=== PATIENT | male | born 1970 | race Caucasian/White ===

== ENCOUNTER → 2017-02-04 | Outpatient (CLI) | payer MEDICARE, OTHER ==
--- NOTE | 2017-02-04 12:09 | MR ---
EXAMINATION TYPE: MR lumbar spine wo con DATE OF EXAM: 02/04/2017 COMPARISON: NONE HISTORY: low back pain TECHNIQUE: Multiplanar, multisequence images of the lumbar spine were acquired. L1-L2: Normal disc appearance without desiccation. No herniation, protrusion or disc bulging. No ca nal stenosis is present. Foramina are patent bilaterally. L2-L3: There is a broad-based disc bulge with disc desiccation present without spinal canal stenosis or neural foraminal narrowing. L3-L4: There is a similar right paracentral subligamentous disc extrusion with caudal extension appro ximately 6 mm. Broad-based component of the disc desiccation abuts the ventral thecal sac resulting i n mild spinal canal stenosis in combination with ligamentum flavum buckling and facet arthropathy. Mi ld bilateral neural foraminal narrowing are seen. L4-L5: Left paracentral protrusion is present superimposed on a broad-based disc bulge. Additionally ligamentum flavum buckling and facet arthropathy are seen at this level resulting in moderate to allyn re bilateral neural foraminal narrowing and mild spinal canal stenosis. Degree of herniation is simil ar to the prior. L5-S1: Broad-based disc bulge is present with diffuse disc desiccation and Modic type II changes of t he endplates, degenerative in nature. There is mild bilateral neural foraminal narrowing and no evide nce of spinal canal stenosis at this level. Lumbar segments are intact. No paraspinal masses are identified. Conus medullaris has a normal appe arance. Diffuse heterogenous appearance of the bone marrow without focal abnormality is seen. IMPRESSION: 1. Stable left paracentral disc herniation at L4-L5 in comparison to the prior exam creating moderate to severe bilateral neural foraminal narrowing in mild spinal canal stenosis. 2. Similar right paracentral subligamentous disc extrusion with caudal extension of 6 mm at L3-L4 wit h resultant mild bilateral neural foraminal narrowing and spinal canal stenosis. 3. Diffuse heterogenous bone marrow signal the relate to marrow reconversion and correlation with CBC is recommended. 4. Previously seen subligamentous disc herniation at L2-L3 has improved and has the appearance of a b road-based disc bulge on today's examination.
== END ==
LOC: RADMRIMAIN 11:17
PROVIDERS: ATTEND Neurological Surgery
DX: M51.26 Other intervertebral disc displacement, lumbar region (principal); M54.5 Low back pain; M48.06 Spinal stenosis, lumbar region
CPT/HCPCS: 72148

== ENCOUNTER → 2018-09-21 | Outpatient (CLI) | payer MEDICARE, OTHER | END | disposition home or self-care (01) | LOC: LABWHC1 12:11 | PROVIDERS: ATTEND Internal Medicine | DX: E87.6 Hypokalemia (principal) | CPT/HCPCS: 36415; 84132 ==

== ENCOUNTER 2018-09-22 04:59 | Emergency (ER) | payer MEDICARE, OTHER ==
[2018-09-22 05:14] VITALS: BP 160/99; PULSE 96; RESP 20; TEMP 98.1
[2018-09-22 06:10] LABS: Basophils # (A) 0.1 k/uL (0-0.2); Basophils % (A) 1 %; Eosinophils # (A) 0.4 k/uL (0-0.7); Eosinophils % (A) 3 %; HCT 40.3 % (39.0-53.0); HGB 13.5 gm/dL (13.0-17.5); Lymphocytes # (A) 2.7 k/uL (1.0-4.8); Lymphocytes % (A) 22 %; MCH 31.3 pg (25.0-35.0); MCHC 33.4 g/dL (31.0-37.0); MCV 93.6 fL (80.0-100.0); Mean Platelet Volume 6.7; Monocytes # (A) 0.7 k/uL (0-1.0); Monocytes % (A) 6 %; Neutrophils # (A) 8.2 k/uL (1.3-7.7); Neutrophils % (A) 67 %; Platelet Count 285 k/uL (150-450); RBC 4.31 m/uL (4.30-5.90); RDW 12.3 % (11.5-15.5); WBC 12.2 k/uL (3.8-10.6)
[2018-09-22 06:32] LABS: Calcium 10.6 mg/dL (8.4-10.2)
--- NOTE | 2018-09-22 06:41 | ED ---
Recheck HPI - General Chief Complaint: Recheck/Abnormal Lab/Rx Stated Complaint: potassium level issue Time Seen by Provider: 09/22/18 05:11 Source: patient Mode of arrival: ambulatory Limitations: no limitations - History of Present Illness Initial Comments: This patient is a 48-year-old man who presents to be evaluated for elevated potassium. The patient states that he had a routine follow-up yesterday. He had labs drawn as part of this and then was called back in as result of his potassium being high. The patient went to [facility] and states that when he was there potassium was checked and it was 7. He had some treatment there and then the potassium was rechecked and had reportedly gone down to 6.2. He had a third test shortly after that and the value came back at 6.5. The patient was then told that he needed to be transferred to a facility that had a higher level of care so he signed himself out and decided to go directly to this facility. Patient denied having any symptoms related to the abnormal labs. He denied weakness or fatigue. No palpitations lightheadedness. No myalgias MD Complaint: abnormal lab Onset/Timin -: days(s) Symptoms Since Prior Visit: no new symptoms Associated Symptoms: none - Related Data Home Medications Medication Instructions Recorded Confirmed Albuterol Inhaler [Ventolin Hfa 1 - 2 puff INHALATION RT-Q6H PRN 09/22/1809/06 Inhaler] Albuterol Nebulized [Ventolin 2.5 mg INHALATION RT-QID PRN 09/22/18 09/22/18 Nebulized] Atorvastatin Calcium [Lipitor] 10 mg PO HS 09/22/18 09/22/18 Cyclobenzaprine [Flexeril] 10 mg PO TID 09/22/18 09/22/18 Fluticasone/Salmeterol [Advair 1 puff INHALATION RT-BID 09/22/18 09/22/18 100-50 Diskus] HYDROcodone/APAP 10-325MG [Sayner 1 tab PO TID 09/22/18 09/22/18 10-325] Lisinopril 20 mg PO BID 09/22/18 09/22/18 Pregabalin [Lyrica] 50 mg PO BID 09/22/18 09/22/18 Allergies Allergy/AdvReac Type Severity Reaction Status Date / Time No Known Allergies Allergy Verified 09/22/18 07:37 Review of Systems ROS Statement: Those systems with pertinent positive or pertinent negative responses have been documented in the HPI. ROS Other: All systems not noted in ROS Statement are negative. Constitutional: Denies: fever, chills, weakness Eyes: Denies: vision change Respiratory: Denies: cough, dyspnea Cardiovascular: Denies: chest pain, palpitations Gastrointestinal: Denies: abdominal pain, vomiting, diarrhea Genitourinary: Denies: dysuria Musculoskeletal: Denies: back pain Skin: Denies: rash Neurological: Denies: headache, weakness, numbness, paresthesias Past Medical History Past Medical History: Hyperlipidemia, Hypertension Additional Past Medical History / Comment(s): Chronic back pain History of Any Multi-Drug Resistant Organisms: None Reported Past Surgical History: Orthopedic Surgery Past Psychological History: No Psychological Hx Reported Smoking Status: Current every day smoker Past Alcohol Use History: None Reported Past Drug Use History: Marijuana General Exam Limitations: no limitations General appearance: alert Head exam: Present: atraumatic, normocephalic Eye exam: Present: normal appearance Neck exam: Present: normal inspection Respiratory exam: Present: normal lung sounds bilaterally. Absent: respiratory distress, wheezes, rales, rhonchi, stridor Cardiovascular Exam: Present: regular rate, normal rhythm, normal heart sounds. Absent: systolic murmur, diastolic murmur, rubs, gallop GI/Abdominal exam: Present: soft. Absent: tenderness, guarding, rebound Extremities exam: Present: normal inspection, normal capillary refill. Absent: pedal edema, calf tenderness Back exam: Present: normal inspection. Absent: CVA tenderness (R), CVA tenderness (L) Neurological exam: Present: alert. Absent: motor sensory deficit Skin exam: Present: warm, dry, intact, normal color. Absent: rash Course Vital Signs 09/22/18 05:04 Temperature 98.1 F Pulse Rate 96 Respiratory 20 Rate Blood Pressure 160/99 O2 Sat by Pulse 95 Oximetry Medical Decision Making - Medical Decision Making Patient is 48-year-old man presents here with hyperkalemia. I discussed the findings with the patient and did give dose of Kayexalate. The patient then stated that he was leaving and would not stay. We discussed that sudden cardiac , disability, and worsening of his condition can all occurred. The patient does express understanding. He states that he will deftly follow up today with the follow-up physicians. We discussed return parameters. - Lab Data Result diagrams: 09/22/18 05:37 09/22/18 05:37 Lab Results 09/22/18 09/22/18 Range/Units 05:37 05:37 WBC 12.2 H (3.8-10.6) k/uL RBC 4.31 (4.30-5.90) m/uL Hgb 13.5 (13.0-17.5) gm/dL Hct 40.3 (39.0-53.0) % MCV 93.6 (80.0-100.0) fL MCH 31.3 (25.0-35.0) pg MCHC 33.4 (31.0-37.0) g/dL RDW 12.3 (11.5-15.5) % Plt Count 285 (150-450) k/uL Neutrophils % 67 % Lymphocytes % 22 % Monocytes % 6 % Eosinophils % 3 % Basophils % 1 % Neutrophils # 8.2 H (1.3-7.7) k/uL Lymphocytes # 2.7 (1.0-4.8) k/uL Monocytes # 0.7 (0-1.0) k/uL Eosinophils # 0.4 (0-0.7) k/uL Basophils # 0.1 (0-0.2) k/uL Sodium 133 L (137-145) mmol/L Potassium 6.5 H* (3.5-5.1) mmol/L Chloride 100 (98-107) mmol/L Carbon Dioxide 23 (22-30) mmol/L Anion Gap 10 mmol/L BUN 27 H (9-20) mg/dL Creatinine 1.25 (0.66-1.25) mg/dL Est GFR (CKD-EPI)AfAm 78 (>60 ml/min/1.73 sqM) Est GFR (CKD-EPI)NonAf 68 (>60 ml/min/1.73 sqM) Glucose 106 H (74-99) mg/dL Calcium 10.6 H (8.4-10.2) mg/dL - EKG Data -: EKG Interpreted by [facility] EKG shows normal: sinus rhythm (Rate 87 bpm), axis (Normal), intervals (MN interval is 154 ms, QTC 406 ms, both normal. QRS duration 124 ms, borderline.), QRS complexes (Borderline for right bundle-branch block) Rate: normal Disposition Clinical Impression: Hyperkalemia Disposition: Left Against Medical Advice Condition: Serious Is patient prescribed a controlled substance at d/c from ED?: No Referrals: Rosalinda Baeza MD [Primary Care Provider] - 1-2 days Rita Myeer MD [STAFF PHYSICIAN] - 1-2 days
[2018-09-22 06:42] LABS: Potassium 6.5 mmol/L (3.5-5.1)
[2018-09-22] MEDS ORDERED: SODIUM POLYSTYRENE SULFONATE 15 GM/60 ML BOTTLE PO STA (08:02)
== END 2018-09-22 08:25 | disposition left against medical advice (07) ==
LOC: EC 04:59
DX: E87.6 Hypokalemia (principal); I10 Essential (primary) hypertension; E78.5 Hyperlipidemia, unspecified; M54.9 Dorsalgia, unspecified; G89.29 Other chronic pain; F17.200 Nicotine dependence, unspecified, uncomplicated; Z98.890 Other specified postprocedural states; Z79.51 Long term (current) use of inhaled steroids; Z79.891 Long term (current) use of opiate analgesic; Z79.899 Other long term (current) drug therapy
CPT/HCPCS: 36415; 80048; 85025; 93005; 99285

== ENCOUNTER → 2021-10-11 | Outpatient (CLI) | payer MEDICARE, OTHER ==
[2021-10-11 13:24] LABS: INR 0.9 (<1.2); Partial Thromboplastin Time 25.9 sec (22.0-30.0); Prothrombin Time 10.4 sec (9.0-12.0)
[2021-10-11 19:14] LABS: HCT 42.3 % (39.6-50.0); HGB 13.9 g/dL (13.0-17.0); MCH 31.4 pg (27.0-32.0); MCHC 32.9 g/dL (32.0-37.0); MCV 95.5 fL (80.0-97.0); Mean Platelet Volume 9.9 fL (9.5-12.2); NRBC Per 100 WBC 0 /100 WBCS (0.0-0.0); Platelet Count 268 X 10*3/uL (140-440); RBC 4.43 X 10*6/uL (4.40-5.60); RDW 12.9 % (11.5-14.5); WBC 9.73 X 10*3/uL (4.50-10.00)
[2021-10-11 19:22] LABS: African American GFR (CKD) 113.4 (60.0-200.0); Albumin 4.6 g/dL (3.8-4.9); Albumin/Globulin Ratio 1.44 (1.60-3.17); Anion Gap 13.2 mmol/L (10.00-18.00); BUN/Creat Ratio 11.67 Ratio (12.00-20.00); Blood Urea Nitrogen 10.5 mg/dL (9.0-27.0); Calcium 9.8 mg/dL (8.7-10.3); Carbon Dioxide 24.8 mmol/L (20.0-27.5); Globulin 3.2 g/dL (1.6-3.3); Non-African American GFR(CKD) 97.9 (60.0-200.0); Potassium 4.3 mmol/L (3.5-5.5); Total Bilirubin 0.9 mg/dL (0.30-1.20); Total Protein 7.8 g/dL (6.2-8.2)
[2021-10-11 20:39] LABS: Appearance,Urine Clear (Clear); Bacteria,Urine None Seen /HPF (None Seen); Bilirubin,Urine Negative (Negative); Blood,Urine Negative (Negative); Color,Urine Dark Yellow (Yellow); Ketones,Urine Trace mg/dL (Negative); Nitrite,Urine Negative (Negative); PH, Urine 6.5 (5.0-8.0); Specific Gravity,Urine 1.029 (1.001-1.030)
== END | disposition home or self-care (01) ==
LOC: LABPAT 12:24
PROVIDERS: ATTEND Orthopaedic Surgery
DX: Z01.818 Encounter for other preprocedural examination (principal); M16.11 Unilateral primary osteoarthritis, right hip
CPT/HCPCS: 80053; 81001; 85027; 85610; 85730; 86850; 86900; 86901; 87070

== ENCOUNTER 2021-10-15 05:34 | Day surgery (SDC) | payer MEDICARE, OTHER ==
[2021-10-11 15:45] VITALS: BMI 31.0
[~2021-10-15 05:34] MED LIST: ACETAMINOPHEN TAB 500 MG TAB PO PRN; GABAPENTIN 300 MG CAP PO PRN; MELOXICAM 7.5 MG TAB PO PRN; TRANEXAMIC ACID IN NACL,ISO-OS 1,000 MG in SALINE 1 100ML.BAG IVPB PRN
[2021-10-15] MEDS ORDERED: ONDANSETRON 4 MG/2 ML VIAL IVP ONE (05:48)
[2021-10-15] MEDS ORDERED: LACTATED RINGERS 1,000 ML IV SCH (05:48)
[2021-10-15] MEDS ORDERED: DEXAMETHASONE SOD PHOSPHATE 4 MG/ML 1 ML VIAL IV ONE (05:48)
[2021-10-15] MEDS ORDERED: SCOPOLAMINE 1 MG/72 HR PATCH TRANSDERM ONE (05:48)
[2021-10-15] MEDS ORDERED: MIDAZOLAM 2 MG/2 ML VIAL IV PRN (05:48)
[2021-10-15] MEDS ORDERED: LIDOCAINE 1% (10MG/ML) FOR IV START INTRADERMA ONE (06:20)
[2021-10-15] MEDS ORDERED: PROPOFOL 10 MG/ML 20 ML VIAL IV ONE (06:55)
[2021-10-15] MEDS ORDERED: fentaNYL (PF) 50 MCG/ML 2 ML AMP ONE (06:55)
[2021-10-15] MEDS ORDERED: SUCCINYLCHOLINE CHLORIDE 100 MG/5 ML SYR IV ONE (06:55)
[2021-10-15] MEDS ORDERED: NEOSTIGMINE 1 MG/ML 10 ML VIAL ONE (06:55)
[2021-10-15] MEDS ORDERED: MIDAZOLAM 2 MG/2 ML VIAL ONE (06:55)
[2021-10-15] MEDS ORDERED: ROCURONIUM 10 MG/ML (5 ML VIAL) IV ONE (06:55)
[2021-10-15] MEDS ORDERED: HYDROmorphone (PF) 1 MG/ML ONE (06:55)
[2021-10-15] MEDS ORDERED: LIDOCAINE 2% INJ 20 MG/ML (2 ML VIAL) ONE (06:55)
[2021-10-15] MEDS ORDERED: GLYCOPYRROLATE 0.2 MG/ML 2 ML VIAL ONE (06:55)
[2021-10-15] MEDS ORDERED: KETAMINE 10 MG/ML 20 ML VIAL ONE (06:55)
[2021-10-15] MEDS ORDERED: TRANEXAMIC ACID IN NACL,ISO-OS 1,000 MG/100 ML BAG ONE (06:55)
[2021-10-15] MEDS ORDERED: ceFAZolin 1,000 MG in SODIUM CHLORIDE 0.9% 1,000 ML IRRIGATION ONE (06:59)
[2021-10-15] MEDS ORDERED: ROPIVACAINE 5 MG/ML 30 ML VIAL MISCELLANE ONE ×2 (07:25→08:02)
[2021-10-15] MEDS ORDERED: LACTATED RINGERS 1,000 ML IV ONE (08:08)
--- NOTE | 2021-10-15 08:10 | P.OP ---
Date of Procedure: 10/15/21 Preoperative Diagnosis: Severe Osteoarthritis right hip Postoperative Diagnosis: Severe osteoarthritis right hip Procedure(s) Performed: Right total hip arthroplasty with a direct anterior approach Implants: [employer] Polarstem standard size 4 [employer] R3, 3 hole hemispherical acetabular shell, 56 mm [employer] Reflection 6.5 mm cancellus screw, 20 mm 2 [employer] R3, XLPE 20 acetabular liner [employer]hew Oxinium femoral head 36 m, +0 All components were press-fit. The articulation is Oxinium on polyethylene. Anesthesia: GETA Surgeon: Ramiro Lozano High Heel Builder #1: Elis Mcgill Estimated Blood Loss (ml): 250 Pathology: other (Femoral head) Condition: stable Disposition: PACU Indications for Procedure: After failure of conservative treatment we discussed the surgical and nonsurgical treatment options at length. Patient wishes to proceed with a total hip arthroplasty with a direct anterior approach. Complications specific to this procedure were discussed at length, including but not limited to infection, leg length discrepancy, dislocation, nerve injury, and fracture. Covid-19 was also discussed at length with the patient, and they are aware of the current policies and procedures. The patient was given the option of delaying surgery, but they elect to proceed knowing these risks. Patient is aware of all these complications and informed consent was obtained Operative Findings: The operative findings are consistent with severe osteoarthritis the right hip Description of Procedure: Patient was seen and evaluated in the preoperative area and the consent was reviewed. The operative site was marked with a skin marker. The patient was then brought to the operating room and given preoperative antibiotics int ravenously. 1 g of Tranexamic acid was also given intravenously. A general anesthetic was administered by the anesthesia department. The patient was then placed on the Adams table with the bony prominences well-padded. The hip area was then prepped with a ChloraPrep solution and draped in the usual sterile fashion. A universal timeout was then performed, which confirmed the patient's name, bernal rgical site, ALLERGIES, and procedure being performed on the consent. Next the incision site was located at 1 cm distal and 2 cm lateral to the anterior superior iliac spine. The skin and subcutaneous tissues were sharply incised. Incision was carefully dissected down to the fascia overlying the tensor fascia rigoberto muscle. This fascia was then incised in line with the incision. Care was taken to stay laterally in order to avoid injuring the lateral femoral cutaneous nerve. Next, using blunt finger dissection, the tensor fascia rigoberto muscle was dissected off its investing fascia. The muscle was then carefully retracted laterally with a cobra retractor over the lateral neck of the femur. Next, the circumflex vessels were identified and cauterized using the AquaMantis device. The anterior hip capsule was then exposed. The capsule was then opened and an inverted T fashion. Cobra retractors were then placed intracapsularly. The retractors were maintained intracapsular throughout the procedure. The proximal femur was then visualized. Fluoroscopic x-rays were then taken in order to evaluate the preoperative leg lengths. A small amount of traction was placed on the leg. The femoral neck was then osteotomized at the appropriate level above the lesser trochanter. A small wedge of bone was then removed from the remaining femoral head. Next, using a corkscrew the femoral head was removed from the acetabulum. On gross visual inspection, the femoral head had complete loss of articular cartilage and multiple periarticular osteophytes. The femoral head was then measured. Attention was then turned to the acetabulum. The acetabulum was exposed and any remaining labrum was excised. Sequential reaming of the acetabulum was performed using fluoroscopic guidance until there was a good bed of bleeding cancellus bone. When the appropriate size was reached, a trial was then placed. The position and fit of the trial was checked with fluoroscopy. The trial was then removed. Then, using fluoroscopic guidance, the final implant was impacted at 20 of anteversion and 40 of abduction, and fully seated in the acetabulum. 2 screws were then placed in the acetabulum. Again fluoroscopy was used to check position of the screws. Next, the liner was then impacted, with a 20 elevated liner located in the anterior superior quadrant. Component locking was confirmed. Attention was then directed to the femur. With the aid of the Adams table, the femur was externally rotated to approximately 130, extended, and adducted under the opposite leg. A side hook was then placed under the proximal femur, and the side hook elevator was used to elevate the proximal femur while releasing the capsule. Retractors were then placed. A capsular release was performed, as well as a release of the conjoined tendon, which afforded excellent visualization of the proximal femur. Next, a box osteotome was used to lateralize the proximal femur. A hand molder was then used to locate the femoral canal. Sequential broaching was then performed with appropriate size which afforded excellent fixation in the proximal femur. A trial was then placed with appropriate head and neck, and the hip was gently reduced with the aid of the Adams table. Fluoroscopy was then used to check position of the components, as well as to ensure equal leg lengths. The hip was then gently dislocated and the trials were then removed. Final implants were then impacted and the hip was again reduced. Final fluoroscopic x-rays confirmed that the components were in anatomic position, as well as equal leg lengths. The hip was also taken through range of motion, and found to be stable. The hip was then copiously irrigated with antibiotic solution with pulsatile lavage. The hip was then irrigated with Irrisept solution. The soft tissues were then injected with a ropivacaine solution. A second dose of 1 g of Tranexamic acid was also given intravenously. The fascia was then closed with 2-0 strata fix suture. The subcutaneous tissue was closed with 3-0 Vicryl. The subcuticular tissue was closed with 3-0 strata fix suture. The skin was then closed with Exofin skin glue. After the glue and dried, and Optifoam silver impregnated dressing was applied. The patient was then transferred to the recovery room in stable condition. The certified ophthalmic surgical assistant STUART Reid was required due to the complexity of surgery, and the need for skilled certified ophthalmic surgical assistant for positioning, draping, exposure, retraction, and closure of the wound.
[2021-10-15] MEDS ORDERED: HYDROmorphone 0.5 MG/0.5 ML SYRINGE IVP PRN ×2 (08:31)
[2021-10-15] MEDS ORDERED: ONDANSETRON 4 MG/2 ML VIAL IVP PRN (08:31)
[2021-10-15] MEDS ORDERED: NALOXONE 0.4 MG/ML 1 ML VIAL IV PRN (08:31)
[2021-10-15] MEDS ORDERED: HYDROmorphone 1 MG/ML 1 ML SYRINGE IVP PRN (08:31)
[2021-10-15] MEDS ORDERED: HYDROcodone/APAP 7.5-325MG 1 EACH TAB PO PRN ×2 (08:33)
[2021-10-15 08:39] VITALS: TEMP 98.3
[2021-10-15] MEDS ORDERED: SODIUM CHLORIDE 0.9% 1,000 ML IV SCH (08:45)
[2021-10-15] MEDS: HYDROmorphone 0.5 MG/0.5 ML SYRINGE IVP PRN ×3 (09:10→09:25)
--- NOTE | 2021-10-15 09:10 | XR ---
EXAMINATION TYPE: XR Hip Limited RT, one view DATE OF EXAM: 10/15/2021 Comparison: None Clinical History: 51-year-old male Status post hip surgery, assess surgical alignment Findings: Single image shows placement of right hip total arthroplasty. Both acetabular cup and femoral stem co mponents of the prosthesis are well seated without periprosthetic fracture. Alignment grossly anatomi c. Some scattered soft tissue air related to recent operation. Impression: Uncomplicated postoperative appearance right hip total arthroplasty.
[2021-10-15] MEDS ORDERED: KETOROLAC 15 MG/ML 1 ML VIAL IVP ONE (09:15)
--- NOTE | 2021-10-15 09:48 | FL ---
EXAMINATION TYPE: FL guidance operating room, XR Hip Limited RT DATE OF EXAM: 10/15/2021 CLINICAL HISTORY: Right hip arthroplasty TECHNIQUE: Fluoroscopic-guided procedure COMPARISON: None. FINDINGS: Fluoroscopic guidance was provided during the procedure. A total of 38 seconds of fluorosc opic time was utilized during the procedure and 2 spot images were acquired. IMPRESSION: As Above.
[2021-10-15 10:25] VITALS: RESP 16
[2021-10-15] MEDS ORDERED: cefOXitin 2 GM VIAL IVPB ONE (11:19)
[2021-10-15 11:28] VITALS: BP 149/93; PULSE 59
[2021-10-15] MEDS ORDERED: ceFAZolin 1,000 MG VIAL IVPB ONE (11:30)
== END 2021-10-15 11:58 | disposition home health service (06) ==
LOC: OR 05:34
PROVIDERS: ATTEND Orthopaedic Surgery
DX: M16.11 Unilateral primary osteoarthritis, right hip (principal)
CPT/HCPCS: 27130; 97161; 88300; 73501; C1713; J2250; J1100; J2710; J0690 ×2; J2405; J3010; J1170 ×2; J2795; J1885; J0330; J2704; J1790; J2001; 86850; 86900; 86901